=== PATIENT | female | born 1990 | race Caucasian/White ===

== ENCOUNTER 2021-09-23 21:02 | Emergency (ER) | payer OTHER ==
[2021-09-23 21:17] VITALS: BP 108/67; PULSE 77; TEMP 97.7; BMI 25.0
== END 2021-09-23 22:07 | disposition home or self-care (01) ==
LOC: JER 21:02
PROC: 0HQGXZZ Repair Left Hand Skin, External Approach (ICD-10-PCS; principal; 2021-09-23)
DX: S61.211A Laceration without foreign body of left index finger without damage to nail, initial encounter (principal); W27.2XXA Contact with scissors, initial encounter
CPT/HCPCS: 99282-25